=== PATIENT | female | born 1935 | race Caucasian/White ===

== ENCOUNTER 2016-09-12 13:34 | Emergency (ER) | payer MEDICARE, BC ==
[~2016-09-12 13:34] MED LIST: ACETAMINOPHEN W1 TA6 PO; ALKA SELTZER PL PO; ATIVAN0.5 MG PO; BEN GAY TP; CETIRIZINE5 MG PO; COLACE100 M1 PO; DESYREL 50MG50 MG PO; MIRALAX17 GM/DOSE PO; MYLANTA 150 ML150 M1 PO; PEPCID 20MG TAB20 MG PO; PREMARIN 0.60.625 M1 PO; PROTONIX40 MG PO; PYRIDIUM200 M2 PO; SALONPAS PAIN R TP; TRAZODONE50 MG PO; ZYRTEC5 MG PO
[2016-09-12 16:25] VITALS: BP 184/79
== END 2016-09-12 16:06 | disposition home or self-care (01) ==
LOC: ED 13:34
DX: R53.1 Weakness (principal); R53.83 Other fatigue
CPT/HCPCS: A4353; J7030

== ENCOUNTER 2017-07-10 17:48 | Emergency (ER) | payer MEDICARE, BC ==
[2017-07-10] MEDS ORDERED: DOXYCYCLINE MO100 M3 PO (18:06)
[2017-07-10 18:45] LABS: HEMATOCRIT 40.1 % (37.0-47.0); HEMOGLOBIN 13.9 g/dL (12.5-16.0); MEAN CELL VOLUME 85 fl (78-100); MEAN CORPUSCULAR HEMOGLOBIN 30 pg (27-31); MEAN CORPUSCULAR HGB CONC 35 g/dL (33-37); MEAN PLATELET VOLUME 9.8 fl (7.4-10.4); PLATELET COUNT 243 K/mm3 (130-400); RED CELL DISTRIBUTION WIDTH 13.3 % (11.5-14.5); WHITE BLOOD COUNT 5.1 K/mm3 (4.8-10.8)
[2017-07-10 18:55] LABS: BUN/CREATININE RATIO 9.6 (6.0-26.0); CALCIUM 9.4 mg/dL (8.4-10.2); POTASSIUM 3.9 mmol/L (3.6-5.0); TOTAL BILIRUBIN 0.9 mg/dL (0.2-1.3); TOTAL PROTEIN 7.7 g/dL (6.3-8.2)
[2017-07-10 18:58] LABS: LIPASE 84 U/L (23-300)
[2017-07-10 19:04] LABS: LYMPHOCYTE 17 % (20-51); MONOCYTE 12 % (3-10); NEUTROPHILS 71 % (42-75)
[2017-07-10] MEDS ORDERED: ZOFRAN ODT4 MG PO (21:42)
[2017-07-10 22:04] VITALS: BP 175/89
== END 2017-07-10 22:04 | disposition home or self-care (01) ==
LOC: ED 17:48
PROVIDERS: Nurse Practitioner Primary Care
DX: E86.0 Dehydration (principal); R11.2 Nausea with vomiting, unspecified; I10 Essential (primary) hypertension; Z90.49 Acquired absence of other specified parts of digestive tract; R60.0 Localized edema; Z88.5 Allergy status to narcotic agent; Z88.0 Allergy status to penicillin; Z88.8 Allergy status to other drugs, medicaments and biological substances; Z88.6 Allergy status to analgesic agent; Z91.012 Allergy to eggs; F41.9 Anxiety disorder, unspecified
CPT/HCPCS: J1885; J2405; J7030

== ENCOUNTER 2017-11-04 12:56 | Emergency (ER) | payer MEDICARE, BC ==
[~2017-11-04 12:56] MED LIST changes: +ALL DAY ALLERGY10 M1 PO; -CETIRIZINE5 MG PO; +DOXYCYCLINE MO100 M3 PO; +ZOFRAN ODT4 MG PO
[2017-11-04 13:37] LABS: EOS # 0.1 (0.04-0.40); EOS % 0.9 % (1.0-5.0); HEMATOCRIT 38.8 % (37.0-47.0); HEMOGLOBIN 13.2 g/dL (12.5-16.0); LYMPH# 1.4 (1.50-4.00); MEAN CELL VOLUME 87 fl (78-100); MEAN CORPUSCULAR HEMOGLOBIN 30 pg (27-31); MEAN CORPUSCULAR HGB CONC 34 g/dL (33-37); MEAN PLATELET VOLUME 9.4 fl (7.4-10.4); MONO # 0.6 (0.20-0.80); NEU # 3.2 (1.40-6.50); PLATELET COUNT 217 K/mm3 (130-400); RED BLOOD COUNT 4.46 M/mm3 (4.10-5.30); RED CELL DISTRIBUTION WIDTH 13.7 % (11.5-14.5); WHITE BLOOD COUNT 5.4 K/mm3 (4.8-10.8)
[2017-11-04 13:52] LABS: ALBUMIN 4.1 g/dL (3.5-5.0); BUN/CREATININE RATIO 11.5 (6.0-26.0); CALCIUM 9.1 mg/dL (8.4-10.2); POTASSIUM 4.2 mmol/L (3.6-5.0); TOTAL BILIRUBIN 0.7 mg/dL (0.2-1.3); TOTAL PROTEIN 7.7 g/dL (6.3-8.2)
[2017-11-04 14:10] LABS: URINE APPEARANCE CLEAR; URINE BILIRUBIN NEGATIVE (NEGATIVE); URINE BLOOD TRACE (NEGATIVE); URINE COLOR YELLOW; URINE GLUCOSE NEGATIVE (NEGATIVE); URINE KETONE NEGATIVE (NEGATIVE); URINE LEUKOCYTE ESTERASE NEGATIVE (NEGATIVE); URINE NITRATE NEGATIVE (NEGATIVE); URINE PROTEIN(semi-quant) TRACE mg/dL (NEGATIVE); URINE UROBILINOGEN NORMAL (NORMAL)
[2017-11-04] MEDS ORDERED: LORAZEPAM0.5 M1 PO (14:27)
[2017-11-04] MEDS ORDERED: DESYREL50 MG PO (14:27)
[2017-11-04] MEDS ORDERED: MUSCLE RUB 10% TOP (14:28)
[2017-11-04] MEDS ORDERED: ALKA-SELTZER PL25 MG PO (14:30)
[2017-11-04] MEDS ORDERED: B-12500 MC1 (14:31)
[2017-11-04 15:39] VITALS: BP 196/89
== END 2017-11-04 15:57 | disposition home or self-care (01) ==
LOC: ED 12:56
PROVIDERS: Family Medicine
DX: M25.551 Pain in right hip (principal); R10.11 Right upper quadrant pain; R10.31 Right lower quadrant pain; M54.5 Low back pain; W19.XXXA Unspecified fall, initial encounter; R30.0 Dysuria; Y92.007 Garden or yard of unspecified non-institutional (private) residence as the place of occurrence of the external cause

== ENCOUNTER 2017-12-03 12:43 | Emergency (ER) | payer MEDICARE, BC ==
[~2017-12-03] VITALS: Wt 51.7 kg
[~2017-12-03 12:43] MED LIST changes: +ALKA-SELTZER PL25 MG PO; +B-12500 MC1; +DESYREL50 MG PO; +LORAZEPAM0.5 M1 PO; +MUSCLE RUB 10% TOP
[2017-12-03] MEDS ORDERED: PRINIVIL5 M1 PO (12:53)
[2017-12-03] MEDS ORDERED: NORVASC2.5 MG PO (13:28)
[2017-12-03 13:41] VITALS: BP 180/95
== END 2017-12-03 13:35 | disposition home or self-care (01) ==
LOC: ED 12:43
DX: I10 Essential (primary) hypertension (principal); R53.81 Other malaise; M41.9 Scoliosis, unspecified; Z79.899 Other long term (current) drug therapy; T88.7XXA Unspecified adverse effect of drug or medicament, initial encounter; T46.4X5A Adverse effect of angiotensin-converting-enzyme inhibitors, initial encounter

== ENCOUNTER → 2018-07-01 | Outpatient (CLI) | payer MEDICARE, BC ==
[~2018-07-01] MED LIST changes: +NORVASC2.5 MG PO; +PRINIVIL5 M1 PO
[2018-07-01 15:59] LABS: EOS % 0.5 % (1.0-5.0); HEMATOCRIT 39.7 % (37.0-47.0); HEMOGLOBIN 13.7 g/dL (12.5-16.0); LYMPH# 1.4 (1.50-4.00); MEAN CELL VOLUME 87 fl (78-100); MEAN CORPUSCULAR HEMOGLOBIN 30 pg (27-31); MEAN CORPUSCULAR HGB CONC 35 g/dL (33-37); MEAN PLATELET VOLUME 9.4 fl (7.4-10.4); MONO # 0.7 (0.20-0.80); NEU # 4.1 (1.40-6.50); PLATELET COUNT 223 K/mm3 (130-400); RED BLOOD COUNT 4.59 M/mm3 (4.10-5.30); RED CELL DISTRIBUTION WIDTH 13.3 % (11.5-14.5); WHITE BLOOD COUNT 6.2 K/mm3 (4.8-10.8)
[2018-07-01 16:11] LABS: ALBUMIN 4.3 g/dL (3.5-5.0); CALCIUM 9.6 mg/dL (8.4-10.2); POTASSIUM 3.9 mmol/L (3.6-5.0); TOTAL BILIRUBIN 1.1 mg/dL (0.2-1.3); TOTAL PROTEIN 7.5 g/dL (6.3-8.2)
[2018-07-01 20:15] LABS: ERYTHROCYTE SEDIMENTATION RATE 5 mm/hr (0-30)
== END ==
LOC: LAB 15:43
PROVIDERS: Nurse Practitioner Family
DX: M47.812 Spondylosis without myelopathy or radiculopathy, cervical region (principal); M48.02 Spinal stenosis, cervical region; R59.0 Localized enlarged lymph nodes; R11.2 Nausea with vomiting, unspecified; R63.4 Abnormal weight loss; R13.10 Dysphagia, unspecified
CPT/HCPCS: Q9967

== ENCOUNTER 2018-08-14 14:41 | Emergency (ER) | payer MEDICARE, BC ==
[2018-08-14] MEDS ORDERED: TRAMADOL 50 MG TAB PO (15:07)
[2018-08-14 15:48] LABS: ALBUMIN 4.1 g/dL (3.5-5.0); CALCIUM 9.8 mg/dL (8.4-10.2); POTASSIUM 3.8 mmol/L (3.6-5.0); TOTAL BILIRUBIN 0.9 mg/dL (0.2-1.3); TOTAL PROTEIN 7.2 g/dL (6.3-8.2)
[2018-08-14 15:55] LABS: EOS % 0.7 % (1.0-5.0); HEMATOCRIT 39.1 % (37.0-47.0); HEMOGLOBIN 13.2 g/dL (12.5-16.0); LYMPH# 1.4 (1.50-4.00); MEAN CELL VOLUME 89 fl (78-100); MEAN CORPUSCULAR HEMOGLOBIN 30 pg (27-31); MEAN CORPUSCULAR HGB CONC 34 g/dL (33-37); MEAN PLATELET VOLUME 10.1 fl (7.4-10.4); MONO # 0.7 (0.20-0.80); NEU # 3.5 (1.40-6.50); PLATELET COUNT 243 K/mm3 (130-400); RED BLOOD COUNT 4.41 M/mm3 (4.10-5.30); RED CELL DISTRIBUTION WIDTH 13.6 % (11.5-14.5); WHITE BLOOD COUNT 5.7 K/mm3 (4.8-10.8)
[2018-08-14 16:23] LABS: URINE COLOR LT YELLOW
[2018-08-14 16:24] LABS: PH-URINE 7.5 (5.0 - 8.0); URINE APPEARANCE CLEAR; URINE BILIRUBIN NEGATIVE (NEGATIVE); URINE BLOOD NEGATIVE (NEGATIVE); URINE GLUCOSE NEGATIVE (NEGATIVE); URINE KETONE NEGATIVE (NEGATIVE); URINE LEUKOCYTE ESTERASE NEGATIVE (NEGATIVE); URINE NITRATE NEGATIVE (NEGATIVE); URINE PROTEIN(semi-quant) NEGATIVE (NEGATIVE); URINE UROBILINOGEN NORMAL (NORMAL); URINE WBC 0-1 /hpf (0-3)
[2018-08-14 17:32] VITALS: BP 213/107
== END 2018-08-14 17:28 | disposition left against medical advice (07) ==
LOC: ED 14:41
PROVIDERS: Nurse Practitioner Family
DX: S22.39XA Fracture of one rib, unspecified side, initial encounter for closed fracture (principal); S27.1XXA Traumatic hemothorax, initial encounter; R53.1 Weakness; I10 Essential (primary) hypertension; M41.9 Scoliosis, unspecified; Z91.19 Patient's noncompliance with other medical treatment and regimen; W18.30XA Fall on same level, unspecified, initial encounter

== ENCOUNTER 2018-09-03 15:34 | Emergency (ER) | payer MEDICARE, BC ==
[~2018-09-03 15:34] MED LIST changes: +TRAMADOL 50 MG TAB PO
[2018-09-03] MEDS ORDERED: NON-ASPIRIN PA325 M2 PO (17:02)
[2018-09-03] MEDS ORDERED: ED TYLENOL6 UDTAB/BO PO (17:03)
[2018-09-03] MEDS ORDERED: CALCIUM CARBONATE PO (17:03)
[2018-09-03] MEDS ORDERED: CETIRIZINE HYDRO5 MG PO (17:04)
[2018-09-03] MEDS ORDERED: SALONPAS PAIN R TOP (17:05)
[2018-09-03] MEDS ORDERED: D-1000 185 MG-11 TAB PO (17:05)
[2018-09-03] MEDS ORDERED: MIRALAX119 GM PO (17:10)
[2018-09-03] MEDS ORDERED: DESYREL50 MG PO (17:12)
[2018-09-03 18:51] LABS: EOS % 0.2 % (1.0-5.0); HEMATOCRIT 40.6 % (37.0-47.0); HEMOGLOBIN 13.7 g/dL (12.5-16.0); LYMPH# 1.2 (1.50-4.00); MEAN CELL VOLUME 88 fl (78-100); MEAN CORPUSCULAR HEMOGLOBIN 30 pg (27-31); MEAN CORPUSCULAR HGB CONC 34 g/dL (33-37); MEAN PLATELET VOLUME 10.1 fl (7.4-10.4); MONO # 0.7 (0.20-0.80); NEU # 4.5 (1.40-6.50); PLATELET COUNT 243 K/mm3 (130-400); RED BLOOD COUNT 4.64 M/mm3 (4.10-5.30); RED CELL DISTRIBUTION WIDTH 13.7 % (11.5-14.5); WHITE BLOOD COUNT 6.4 K/mm3 (4.8-10.8)
[2018-09-03 19:02] LABS: ALBUMIN 4.4 g/dL (3.5-5.0); CALCIUM 9.6 mg/dL (8.4-10.2); POTASSIUM 4.4 mmol/L (3.6-5.0); TOTAL BILIRUBIN 1.5 mg/dL (0.2-1.3); TOTAL PROTEIN 7.7 g/dL (6.3-8.2)
[2018-09-03 19:16] LABS: PH-URINE 6.5 (5.0 - 8.0); URINE APPEARANCE HAZY; URINE COLOR YELLOW; URINE PROTEIN(semi-quant) TRACE mg/dL (NEGATIVE)
[2018-09-03 19:17] LABS: URINE BILIRUBIN NEGATIVE (NEGATIVE); URINE BLOOD 50 ery/uL (NEGATIVE); URINE GLUCOSE NEGATIVE (NEGATIVE); URINE KETONE 1+ (NEGATIVE); URINE LEUKOCYTE ESTERASE 2+ (NEGATIVE); URINE NITRATE NEGATIVE (NEGATIVE); URINE UROBILINOGEN NORMAL (NORMAL)
[2018-09-03] MEDS ORDERED: MACROBID 100 M100 MG PO (19:49)
[2018-09-03] MEDS ORDERED: COZAAR25 M1 PO (19:49)
[2018-09-03 20:12] LABS: ERYTHROCYTE SEDIMENTATION RATE 4 mm/hr (0-30)
[2018-09-03 20:39] VITALS: BP 186/91
== END 2018-09-03 20:39 | disposition home or self-care (01) ==
LOC: ED 15:34
PROVIDERS: Physician Assistant
DX: R51 Headache (principal); N39.0 Urinary tract infection, site not specified; I10 Essential (primary) hypertension; E03.9 Hypothyroidism, unspecified; E78.5 Hyperlipidemia, unspecified; F41.9 Anxiety disorder, unspecified; K58.9 Irritable bowel syndrome, unspecified; Z90.49 Acquired absence of other specified parts of digestive tract; Z90.710 Acquired absence of both cervix and uterus
CPT/HCPCS: J7030

== ENCOUNTER → 2018-09-09 | Day surgery (SDC) | payer MEDICARE, BC ==
[2018-09-03 20:39] VITALS: BP 186/91
[~2018-09-09] MED LIST changes: +CALCIUM CARBONATE PO; +CETIRIZINE HYDRO5 MG PO; +COZAAR25 M1 PO; +D-1000 185 MG-11 TAB PO; +ED TYLENOL6 UDTAB/BO PO; +MACROBID 100 M100 MG PO; +MIRALAX119 GM PO; +NON-ASPIRIN PA325 M2 PO; +SALONPAS PAIN R TOP
== END ==
LOC: MSO 12:10
DX: K21.0 Gastro-esophageal reflux disease with esophagitis (principal); K22.2 Esophageal obstruction; Z88.6 Allergy status to analgesic agent; Z90.49 Acquired absence of other specified parts of digestive tract; Z90.710 Acquired absence of both cervix and uterus
CPT/HCPCS: 00731; A4649; C1726; J2704; J7120